=== PATIENT | female | born 1955 | race Caucasian/White ===

== ENCOUNTER 2018-01-24 08:52 | Outpatient (CLI) | payer MEDICARE, MEDICAID ==
[~2018-01-24 08:52] MED LIST: HYDR-4353 PO
[2018-01-24 09:01] VITALS: BP 135/78
== END 2018-01-24 09:36 | disposition home or self-care (01) ==
LOC: ORTHO 08:52
PROVIDERS: ATTEND Nurse Practitioner Family
DX: S62.347A Nondisplaced fracture of base of fifth metacarpal bone, left hand, initial encounter for closed fracture (principal); S20.20XA Contusion of thorax, unspecified, initial encounter; F17.200 Nicotine dependence, unspecified, uncomplicated; E11.9 Type 2 diabetes mellitus without complications; W01.0XXA Fall on same level from slipping, tripping and stumbling without subsequent striking against object, initial encounter; Y93.01 Activity, walking, marching and hiking; Y92.830 Public park as the place of occurrence of the external cause; Y99.8 Other external cause status
CPT/HCPCS: 73130; 99213

== ENCOUNTER 2018-02-14 09:37 | Outpatient (CLI) | payer MEDICARE, MEDICAID ==
[2018-02-14 09:39] VITALS: BP 129/77
== END 2018-02-14 10:23 | disposition home or self-care (01) ==
LOC: ORTHO 09:37
PROVIDERS: ATTEND Nurse Practitioner Family
DX: S62.347D Nondisplaced fracture of base of fifth metacarpal bone, left hand, subsequent encounter for fracture with routine healing (principal); M19.042 Primary osteoarthritis, left hand; J45.909 Unspecified asthma, uncomplicated; E11.9 Type 2 diabetes mellitus without complications; F17.210 Nicotine dependence, cigarettes, uncomplicated; F12.90 Cannabis use, unspecified, uncomplicated; Z98.890 Other specified postprocedural states; W01.0XXD Fall on same level from slipping, tripping and stumbling without subsequent striking against object, subsequent encounter
CPT/HCPCS: 73130; 99213